=== PATIENT | female | born 1970 | race Two or more races ===

== ENCOUNTER 2022-03-28 19:47 | Emergency (ER) | payer MEDICAID, OTHER ==
[~2022-03-28] VITALS: Ht 154.9 cm; Wt 65.8 kg
[2022-03-28 19:49] VITALS: BP 128/90
== END 2022-03-28 23:42 | disposition left against medical advice (07) ==
LOC: ER 19:47
DX: H57.12 Ocular pain, left eye (principal); Z53.21 Procedure and treatment not carried out due to patient leaving prior to being seen by health care provider